=== PATIENT | male | born 1970 | race Caucasian/White ===

== ENCOUNTER 2016-09-19 18:24 | Emergency (ER) | payer OTHER ==
[~2016-09-19] VITALS: Ht 167.6 cm; Wt 89.6 kg
[~2016-09-19 18:24] MED LIST: ANDROGEL75 GM TD; LEVAQUIN500 MG PO; MELOXICAM7.5 MG PO; MONTELUKAST SOD10 MG PO; PREDNISONE1 MG PO; PREDNISONE10 MG PO; PREDNISONE20 MG PO; PROAIR HFA8.5 GM IH; SINGULAIR10 MG PO; SYMBICORT60 INHALAT IH
[2016-09-19] MEDS ORDERED: PERCOCET 5/31 TABLET PO (20:09)
[2016-09-19] MEDS ORDERED: FLEXERIL10 MG PO (20:09)
[2016-09-19] MEDS ORDERED: MEDROL DOSEPAK4 MG PO (20:09)
[2016-09-19 20:24] VITALS: BP 123/74
== END 2016-09-19 20:25 | disposition home or self-care (01) ==
LOC: EME 18:24 → RME 18:24
DX: M54.16 Radiculopathy, lumbar region (principal); M79.605 Pain in left leg; J44.9 Chronic obstructive pulmonary disease, unspecified; J45.909 Unspecified asthma, uncomplicated; F17.200 Nicotine dependence, unspecified, uncomplicated
CPT/HCPCS: 99281; 99284; J7512